=== PATIENT | male | born 1985 | race Caucasian/White ===

== ENCOUNTER 2016-10-16 13:22 | Emergency (ER) | payer SELFPAY ==
[2016-10-16 14:24] VITALS: BP 135/80
--- NOTE | 2016-10-16 15:46 | UC ---
Respiratory Complaint HPI - HPI Summary HPI Summary: 31 yo male with cough(productive) x 5 days chills fatigue - History of Current Complaint Chief Complaint: UCGeneralIllness Stated Complaint: COUGH,CONGESTION Time Seen by Provider: 10/16/16 15:33 Hx Obtained From: Patient Onset/Duration: Sudden Onset Timing: Constant Severity Initially: Mild Severity Currently: Mild Pain Intensity: 3 Pain Scale Used: 0-10 Numeric Aggravating Factors: Nothing Alleviating Factors: Nothing Associated Signs And Symptoms: Positive: Chills - Allergies/Home Medications Allergies/Adverse Reactions: Allergies Allergy/AdvReac Type Severity Reaction Status Date / Time [facility] Allergy Intermediate nausea , Verified 10/16/16 14:24 vomiting Home Medications: Home Medications Naproxen TAB* [Naprosyn TAB*] 375 mg PO DAILY 10/16/16 [History Confirmed ] PMH/Surg Hx/FS Hx/Imm Hx Previously Healthy: Yes Cardiovascular History Of: Comment Only: 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 14- mumur resolved - Surgical History Surgical History: None - Family History Known Family History: Positive: Hypertension - Social History Alcohol Use: Occasionally Substance Use Type: None Smoking Status (MU): Heavy Every Day Tobacco Smoker Type: Cigarettes Amount Used/How Often: 1/2 pack daily Cessation Counseling: Patient Advised to Stop Review of Systems Constitutional: Chills, Fatigue Skin: Negative Eyes: Negative ENT: Negative Respiratory: Cough Cardiovascular: Negative Gastrointestinal: Negative Genitourinary: Negative Motor: Negative Neurovascular: Negative Musculoskeletal: Negative Neurological: Negative Psychological: Negative All Other Systems Reviewed And Are Negative: Yes Physical Exam Triage Information Reviewed: Yes Appearance: Well-Appearing, No Pain Distress, Well-Nourished Vital Signs: Initial Vital Signs Temp 98.5 F 10/16/16 14:20 Pulse 77 10/16/16 14:20 Resp 18 10/16/16 14:20 BP 135/80 10/16/16 14:20 Pulse Ox 99 10/16/16 14:20 Vital Signs Reviewed: Yes Eyes: Positive: Conjunctiva Clear ENT: Positive: Normal ENT inspection, Hearing grossly normal, TMs normal. Negative: Pharyngeal erythema, Nasal congestion, Nasal drainage, Tonsillar exudate, Trismus, Muffled/hoarse voice Neck: Positive: Supple, Nontender Respiratory: Positive: Lungs clear, Normal breath sounds, No respiratory distress, No accessory muscle use, Rhonchi - with forced expiration Cardiovascular: Positive: RRR, No Murmur Musculoskeletal: Positive: ROM Intact, No Edema Neurological: Positive: Alert Psychological Exam: Normal Skin Exam: Normal UC Diagnostic Evaluation - Laboratory O2 Sat by Pulse Oximetry: 99 - normal/not hypoxic Respiratory Course/Dx - Differential Dx/Diagnosis Provider Diagnoses: bronchitis Discharge - Discharge Plan Condition: Stable Disposition: HOME Prescriptions: DOXYcycline CAP(*) [DOXYcycline 100MG CAP(*)] 100 mg PO BID #20 cap Patient Education Materials: Acute Bronchitis (ED) Forms: *Work Release Referrals: No Primary Care Phys,NOPCP [Primary Care Provider] - Additional Instructions: recheck in 4-7 days if not better rest fluids tylenol mucinex robitussin or mucinex
== END 2016-10-16 15:48 | disposition home or self-care (01) ==
LOC: UCCORT 13:22
DX: J20.9 Acute bronchitis, unspecified (principal); F17.210 Nicotine dependence, cigarettes, uncomplicated; Z71.6 Tobacco abuse counseling; Z88.1 Allergy status to other antibiotic agents
CPT/HCPCS: 99212; G0463